=== PATIENT | female | born 1930 | race Caucasian/White ===

== ENCOUNTER 2017-01-23 12:20 | Emergency (ER) | payer MEDICARE, OTHER ==
[~2017-01-23 12:20] MED LIST: ALLERGY RELIEF10 M2 PO; ANTIVERT25 M1 PO; ASPIRIN325 M3 PO; ATARAX25 MG PO; BENADRYL25 M3 PO; CALTRATE 600 +1 EAC2 PO; CALTRATE 600 W1 EACH PO; CITRACAL + D C1 EACH PO; CLEOCIN150 MG/CA1 PO; CLOPIDOGREL75 M1 PO; DELTASONE10 MG PO; EPA-DHA SOFTGEL1 CAP PO; ERYTHROMYCIN3.5 GM OP; FISH OIL 1,0001 EA10 PO; KEFLEX500 M1 PO; KEFLEX500 MG PO; LACTASE ENZYME1 TAB PO; LACTOSE PO; LASIX20 M1 PO; LISINOPRIL10 M1 PO; LOW DOSE ASPIRI81 M1 PO; MOBIC15 MG PO; MULTIVITAMIN1 TAB PO; NORVASC2.5 M1 PO; NORVASC5 M2 PO; PLAVIX75 M1 PO; PREDNISONE10 M1 PO; PREDNISONE20 MG PO; PRILOSEC20 MG PO; RED YEAST RICE600 MG PO; TYLENOL SU650 MG/SU1 PR; TYLENOL325 MG PO; ULTRAM50 MG PO; ZETIA10 MG PO; ZOFRAN ODT4 MG PO
== END 2017-01-23 14:07 ==
LOC: EDMED 12:20
DX: S09.90XA Unspecified injury of head, initial encounter (principal); M25.511 Pain in right shoulder; M25.561 Pain in right knee; I10 Essential (primary) hypertension; W19.XXXA Unspecified fall, initial encounter